=== PATIENT | female | born 1980 | race Caucasian/White ===

== ENCOUNTER 2016-12-17 15:47 | Emergency (ER) | payer OTHER ==
--- NOTE | ~2016-12-17 | CR58 ---
[facility] A Service of [facility] RADIOLOGY TEXT RESULTS PATIENT: FIDENCIO COLLIER LOCATION: SED : 78 UNIT #: [id number] AGE: [address]: Traci Burns APRN DIRECTOR COMPENSATION SEX: F ORDER DR: [id number] [address] [id number] MR#: [id number] Acc #: [id number] NAME: FIDENCIO COLLIER : 1980 SEX: F STUDY DATE/TIME: 12/17/2016 16:09 UNIT: SED ROOM: STUDY DESCRIPTION: CR Cervical Spine 2 or 3 Views Attending Physician: Traci Burns A.P.R.N. Ordering Physician: Traci Burns A.P.R.N. MEDICAL IMAGING REPORT This report is preliminary unless electronic signature is present. EXAM 3 view cervical spine DATE 12/17/2016 HISTORY Right side neck pain radiating to the shoulder for few weeks. No known injury. Radiculopathy. COMPARISON None. FINDINGS There is mild reversal of normal cervical lordosis centered at C4-5. No cervical spine fracture or subluxation. Disc space height appears well preserved. No significant degenerative facet changes. Craniocervical junction is intact. Lung apices are clear. IMPRESSION Mild reversal of normal cervical lordosis in the mid cervical spine. Otherwise, normal 3 views of the cervical spine. Dictated by... Mary Cheema M.D. THIS IS AN ELECTRONICALLY VERIFIED REPORT Mary Cheema M.D. at 12/19/2016 7:02 PM BRITTANY/patricia TD: 12/18/2016 04:38 JOB #: [id number] [facility] A Service [facility] RADIOLOGY TEXT RESULTS PATIENT: FIDENCIO COLLIER LOCATION: SED : [birth year] UNIT #: [id number] AGE: [address]: Traci Burns APRN DIRECTOR COMPENSATION SEX: F ORDER DR: MEDICAL IMAGING REPORT
[~2016-12-17 15:47] MED LIST: BIRTH CONTROL
== END 2016-12-17 16:59 | disposition home or self-care (01) ==
LOC: SED 15:47
DX: M54.12 Radiculopathy, cervical region (principal); F17.200 Nicotine dependence, unspecified, uncomplicated; Z88.0 Allergy status to penicillin; X58.XXXA Exposure to other specified factors, initial encounter
CPT/HCPCS: 72040; 99283